=== PATIENT | male | born 2000 | race Caucasian/White ===

== ENCOUNTER 2022-05-18 09:34 | Observation (INO) | payer OTHER ==
[~2022-05-18] VITALS: Ht 175.3 cm; Wt 68.4 kg
[2022-05-18] MEDS ORDERED: ONDANSETRON 4MG 2ML VIAL IV ONE (10:25)
[2022-05-18] MEDS ORDERED: NS 1,000 ML IV ONE ×2 (10:25→13:05)
[2022-05-18] MEDS: MORPHINE 2 MG/ML 1ML VIAL IV PRN ×2 (10:52→18:42)
[2022-05-18] MEDS ORDERED: ISOVUE-370 76% 100ML VIAL As Ordered ONE (11:01)
[2022-05-18 11:21] LABS: VENOUS BASE EXCESS -2.4 (-2.0-2.0); VENOUS HCO3 23.1 MEQ/L (23.0-27.0); VENOUS O2 SATURATION 81.4 % (60.0-80.0); VENOUS PARTIAL PRESSURE CO2 42.6 mmHg (38.0-50.0); VENOUS PARTIAL PRESSURE O2 45.2 mmHg (30.0-50.0); VENOUS PH 7.353 UNITS (7.330-7.430); VENOUS STANDARD HCO3 22.1 MEQ/L; VENOUS TOTAL CO2 24.5 MEQ/L (24.0-28.0)
[2022-05-18 11:28] LABS: BASO % 0.3 % (0.0-1.0); EOS % 0.4 % (0.0-3.0); HEMATOCRIT 44.1 % (42.0-52.0); HEMOGLOBIN 15.5 g/dl (13.5-17.5); LYMPH # 0.9 10^3/uL (1.5-5.0); LYMPH % 11.9 % (24.0-44.0); MEAN CORPUSCULAR HEMOGLOBIN 28.7 pg (27.0-33.0); MEAN CORPUSCULAR HGB CONC 35.1 g/dl (32.0-36.5); MEAN CORPUSCULAR VOLUME 81.7 fl (80.0-96.0); MONO # 0.4 10^3/uL (0.0-0.8); MONO % 5.7 % (2.0-8.0); NEUTROPHILS # 6.1 10^3/uL (1.5-8.5); NEUTROPHILS % 81.3 % (36.0-66.0); PLATELET COUNT, AUTOMATED 222 10^3/uL (150-450); WHITE BLOOD COUNT 7.5 10^3/uL (4.0-10.0)
[2022-05-18 11:45] LABS: HEMOGLOBIN A1c 10.3 %; OSMOLALITY SERUM 300 MOSM/KG (275-295)
[2022-05-18 12:00] LABS: ALBUMIN 3.9 GM/DL (3.2-5.2); ALT/SGPT 26 U/L (12-78); BILIRUBIN,DIRECT 0.3 MG/DL (0.0-0.2); BILIRUBIN,TOTAL 1.4 MG/DL (0.2-1.0); BLOOD UREA NITROGEN 17 MG/DL (7-18); CALCIUM LEVEL 9.2 MG/DL (8.5-10.1); CARBON DIOXIDE LEVEL 23 MEQ/L (21-32); CHLORIDE LEVEL 104 MEQ/L (98-107); CREATININE FOR GFR 0.92 MG/DL (0.70-1.30); ETHYL ALCOHOL (ETHANOL) < 0.003 % (0.000-0.010); GLUCOSE, FASTING 320 MG/DL (70-100); LIPASE 62 U/L (73-393); MAGNESIUM LEVEL 1.7 MG/DL (1.8-2.4); POTASSIUM SERUM 3.7 MEQ/L (3.5-5.1); SODIUM LEVEL 137 MEQ/L (136-145); TOTAL PROTEIN 6.9 GM/DL (6.4-8.2)
[2022-05-18] MEDS ORDERED: INSULIN LISPRO (NovoLOG) PER UNIT SC STA (13:02)
[2022-05-18] MEDS ORDERED: NOVOINJ3 SC (14:12)
[2022-05-18] MEDS ORDERED: LANTINJ4 SC (14:12)
[2022-05-18] MEDS ORDERED: HOME MED LIST COMPLETE! XX SCH (14:15)
[2022-05-18 14:35] LABS: AMPHETAMINES LEVEL URINE NEGATIVE (NEGATIVE); BARBITURATES URINE NEGATIVE (NEGATIVE); BENZODIAZEPINES URINE NEGATIVE (NEGATIVE); CANNABINOIDS URINE NEGATIVE (NEGATIVE); COCAINE METABOLITE URINE NEGATIVE (NEGATIVE); METHADONE URINE NEGATIVE (NEGATIVE); OPIATES URINE POSITIVE (NEGATIVE); PHENCYCLIDINE URINE NEGATIVE (NEGATIVE)
[2022-05-18 15:52] LABS: RSV AMPLIFICATION NEGATIVE (NEGATIVE)
[2022-05-18] MEDS: INSULIN LISPRO (NovoLOG) PER UNIT SC SCH (18:00)
[2022-05-18 18:19] LABS: BLOOD UREA NITROGEN 12 MG/DL (7-18); CALCIUM LEVEL 8.7 MG/DL (8.5-10.1); CARBON DIOXIDE LEVEL 25 MEQ/L (21-32); CHLORIDE LEVEL 109 MEQ/L (98-107); GLUCOSE, FASTING 176 MG/DL (70-100); POTASSIUM SERUM 3.9 MEQ/L (3.5-5.1); SODIUM LEVEL 140 MEQ/L (136-145)
[2022-05-18] MEDS ORDERED: GLUCAGON INJ 1MG VIAL SC PRN (18:20)
[2022-05-18] MEDS ORDERED: GLUCOSE 4GM CHEW TABLET PO PRN (18:20)
[2022-05-18] MEDS ORDERED: DEXTROSE 50% 50 ML SYRINGE IV PRN (18:20)
[2022-05-18] MEDS: NS 1,000 ML IV SCH (18:58)
[2022-05-18] MEDS ORDERED: MAG SULF 1GM/100ML (MAG RUN) 1 GM in IV 1 EA IV ONE (19:00)
[2022-05-18 20:42] LABS: BLOOD UREA NITROGEN 12 MG/DL (7-18); CALCIUM LEVEL 8.5 MG/DL (8.5-10.1); CARBON DIOXIDE LEVEL 25 MEQ/L (21-32); CHLORIDE LEVEL 109 MEQ/L (98-107); CREATININE FOR GFR 0.75 MG/DL (0.70-1.30); GLUCOSE, FASTING 155 MG/DL (70-100); POTASSIUM SERUM 3.5 MEQ/L (3.5-5.1); SODIUM LEVEL 140 MEQ/L (136-145)
[2022-05-18 22:50] VITALS: BP 140/85
[2022-05-18] MEDS ORDERED: METOCLOPRAMIDE INJ 10MG/2ML VIAL (J2765 PER 1) IV PRN (22:55)
[2022-05-18] MEDS: ACETAMINOPHEN TAB 650MG DOSE (2X325MG) PO PRN (23:23)
[2022-05-19] MEDS: INSULIN LISPRO (NovoLOG) PER UNIT SC SCH ×4 (01:23→18:00)
[2022-05-19 02:00] VITALS: BP 158/98
[2022-05-19] MEDS ORDERED: KETOROLAC 30 MG/ML 1ML VIAL IV ONE (02:00)
[2022-05-19 06:00] VITALS: BP 109/68
[2022-05-19 07:33] LABS: HEMATOCRIT 38.9 % (42.0-52.0); HEMOGLOBIN 13.6 g/dl (13.5-17.5); MEAN CORPUSCULAR HEMOGLOBIN 28.9 pg (27.0-33.0); MEAN CORPUSCULAR VOLUME 82.8 fl (80.0-96.0); PLATELET COUNT, AUTOMATED 263 10^3/uL (150-450); WHITE BLOOD COUNT 8.3 10^3/uL (4.0-10.0)
[2022-05-19] MEDS: NS 1,000 ML IV SCH (07:41)
[2022-05-19 08:20] LABS: ALT/SGPT 20 U/L (12-78); BILIRUBIN,TOTAL 1.2 MG/DL (0.2-1.0); BLOOD UREA NITROGEN 11 MG/DL (7-18); CALCIUM LEVEL 8.8 MG/DL (8.5-10.1); CARBON DIOXIDE LEVEL 23 MEQ/L (21-32); CHLORIDE LEVEL 107 MEQ/L (98-107); CREATININE FOR GFR 0.75 MG/DL (0.70-1.30); GLUCOSE, FASTING 160 MG/DL (70-100); MAGNESIUM LEVEL 1.8 MG/DL (1.8-2.4); POTASSIUM SERUM 3.5 MEQ/L (3.5-5.1); SODIUM LEVEL 136 MEQ/L (136-145); TOTAL PROTEIN 5.4 GM/DL (6.4-8.2)
[2022-05-19] MEDS ORDERED: ENOXAPARIN 40MG/0.4ML SYRINGE (J1650 PER 10MG) SC SCH (09:00)
[2022-05-19] MEDS ORDERED: LEVEMIR (INSULIN DETEMIR) 1 UNITS/0.01ML SC SCH (09:00)
[2022-05-19 09:30] VITALS: BP 115/79
[2022-05-19] MEDS: ACETAMINOPHEN TAB 650MG DOSE (2X325MG) PO PRN (10:07)
[2022-05-19 14:00] VITALS: BP 115/79
[2022-05-19] MEDS ORDERED: ACET1TAB55 PO (15:49)
== END 2022-05-19 20:40 | disposition home or self-care (01) ==
LOC: M ED 09:34 → EDBD 09:34 → M ED INP 09:35 → ENRESERV 21:45 → M MSPAV 22:41
PROVIDERS: ADMIT Family Medicine; ATTEND Family Medicine
DX: E10.65 Type 1 diabetes mellitus with hyperglycemia (principal); K52.9 Noninfective gastroenteritis and colitis, unspecified; R16.1 Splenomegaly, not elsewhere classified
CPT/HCPCS: 36415; 71045; 74177; 80047; 80048; 80053; 80076; 80307; 82010; 82077; 82803; 83036; 83605; 83690; 83735; 83930; 85025; 85027; 87040; 87631; 93005; 93041; 94760; 96361; 96372; 96374; 96375; 96376; 99285; J1650; J1815; J1885; J2270; J2405; J2765; J3475; Q9967